=== PATIENT | male | born 1985 | race Hispanic/Latino ===

== ENCOUNTER 2024-03-10 15:20 | Emergency (ER) | payer BC ==
[~2024-03-10] VITALS: Ht 175.3 cm; Wt 115.7 kg
[2024-03-10] MEDS: TRAMADOL HCL 50 MG TAB PO ONE (16:45)
[2024-03-10] MEDS: DEXAMETHASONE SOD PHOS 10 MG/1 ML VIAL IM ONE (16:50)
[2024-03-10] MEDS: KETOROLAC TROMETHAMINE 30 MG/ML VIAL IM STA (16:50)
[2024-03-10] MEDS ORDERED: GABAPENTIN300 MG PO (17:02)
[2024-03-10 17:24] VITALS: PULSE 93; RESP 16; TEMP 97.8; O2SAT 96
== END 2024-03-10 18:01 | disposition home or self-care (01) ==
LOC: ER 15:42
DX: M54.42 Lumbago with sciatica, left side (principal); I10 Essential (primary) hypertension
CPT/HCPCS: 99283; J1100; J1885